=== PATIENT | female | born 1940 | race Caucasian/White ===

== ENCOUNTER → 2017-05-07 | Outpatient (CLI) | payer OTHER, BC ==
[~2017-05-07] MED LIST: ALPR-411 PO; ASACOL 400MG PO; CALC-354 PO; DABI150C PO; ESCI10TA17 PO; ESCI5TAB PO; OMEP20CA59 PO; PRAV20TA PO; PRED-301 PO; PRT40 PO
[2017-05-07 18:06] LABS: BASO % 0.6 %; BASO ABS # 0.04 K/uL (0-0.2); EOS % 0.3 %; HEMATOCRIT 21.2 % (37-47); IG% 0.3 %; LYMPH % 21.2 %; LYMPH ABS # 1.47 K/uL (1.2-3.4); MEAN CELL VOLUME 94.2 fL (80-100); MEAN CORPUSCULAR HEMOGLOBIN 31.6 pg (25-34); MEAN CORPUSCULAR HGB CONC 33.5 g/dl (32-36); MEAN PLATELET VOLUME 9.9 fL (7.4-10.4); MONO % 6.4 %; NEUT % 71.2 %; PLATELET COUNT 249 K/uL (130-400); RED BLOOD COUNT 2.25 M/uL (4.2-5.4); WHITE BLOOD COUNT 6.92 K/uL (4.8-10.8)
[2017-05-07 18:32] LABS: COMPLETE YES; POLYCHROMASIA 1+
[2017-05-07 18:38] LABS: ALB/GLOB RATIO 1.1 (0.9-2); ALKALINE PHOSPHATASE 45 U/L (45-117); ALT/SGPT 12 U/L (12-78); AST/SGOT 10 U/L (15-37); BLOOD UREA NITROGEN 16 mg/dl (7-18); BUN/CREATININE RATIO 18.6 (10-20); CALCIUM 8.2 mg/dl (8.5-10.1); CARBON DIOXIDE 28 mmol/L (21-32); CHLORIDE 103 mmol/L (98-107); CREATININE 0.87 mg/dl (0.60-1.20); GLUCOSE 91 mg/dl (70-99); POTASSIUM 4.2 mmol/L (3.5-5.1); SODIUM 137 mmol/L (136-145)
[2017-05-07 18:43] LABS: CHOLESTEROL 113 mg/dl (0-200); CHOLESTEROL/HDL RATIO 2.3; HDL CHOLESTEROL 50 mg/dl; LDL CHOLESTEROL CALCULATED 52 mg/dl; TRIGLYCERIDES 57 mg/dl (0-150); VERY LOW DENSITY LIPOPROT CALC 11 mg/dl
[2017-05-08 06:22] LABS: ESTIMATED AVERAGE GLUCOSE 105 mg/dl; HA1C FLAG Normal (Normal)
== END | disposition home or self-care (01) ==
LOC: C.LABMFLN 13:00
PROVIDERS: ATTEND Physician Assistant
DX: R07.9 Chest pain, unspecified (principal)

== ENCOUNTER 2017-05-08 11:46 | Inpatient (IN) | payer OTHER, BC ==
[~2017-05-08] VITALS: Ht 162.6 cm; Wt 48.5 kg
[2017-05-08] VITALS (14 sets, daily range): BP systolic 101–123; BP diastolic 57–73; PULSE 60–79; TEMP 36.5–36.8; O2SAT 91–100; Ht 162.6 cm; Wt 48.5 kg
[~2017-05-08 11:46] MED LIST changes: -DABI150C PO; -ESCI10TA17 PO; -PRAV20TA PO; -PRED-301 PO; -PRT40 PO
[2017-05-08] MEDS ORDERED: ALPR-411 PO (12:36)
[2017-05-08] MEDS ORDERED: DABI150C PO (12:36)
[2017-05-08] MEDS ORDERED: OMEP20CA59 PO (12:36)
[2017-05-08] MEDS ORDERED: PRED-301 PO (12:36)
[2017-05-08] MEDS ORDERED: ESCI10TA17 PO (12:36)
[2017-05-08] MEDS ORDERED: PRAV20TA PO (12:36)
[2017-05-08] MEDS ORDERED: SODIUM CHLORIDE 0.9% 1000ML 1,000 ML IV STA (12:37)
[2017-05-08] MEDS ORDERED: PANTOprazole INJ 80 MG in DEXTROSE 5% 100ML IV ONE (13:00)
--- NOTE | 2017-05-08 13:01 | DIAGNOSTIC IMAGING REPORT ---
CHEST ONE VIEW PORTABLE CLINICAL HISTORY: EVALUATE GI BLEED dyspnea COMPARISON STUDY: 10/18/2013 FINDINGS: Stable emphysematous change. Mild pulmonary hyperaeration. No evidence for cardiac enlargement. No focal infiltrate. IMPRESSION: Emphysematous change. No acute process. Electronically signed by: Uli Sanches M.D. 05/08/2017 1:00 PM Dictated Date/Time: 05/08/2017 12:59 PM
[2017-05-08] MEDS ORDERED: PANTOprazole INJ 40 MG in DEXTROSE 5% 100ML IV SCH (13:15)
[2017-05-08 13:27] LABS: INR 1.2 (0.9-1.1); PARTIAL THROMBOPLASTIN RATIO 1.3; PROTHROMBIN TIME (PATIENT) 12.4 SECONDS (9.0-12.0)
[2017-05-08 13:32] LABS: HEMATOCRIT 20.8 % (37-47); MEAN CELL VOLUME 94.5 fL (80-100); MEAN CORPUSCULAR HEMOGLOBIN 30.9 pg (25-34); MEAN CORPUSCULAR HGB CONC 32.7 g/dl (32-36); MEAN PLATELET VOLUME 9.3 fL (7.4-10.4); PLATELET COUNT 266 K/uL (130-400); WHITE BLOOD COUNT 9.82 K/uL (4.8-10.8)
[2017-05-08 13:43] LABS: ALT/SGPT 12 U/L (12-78); AST/SGOT 12 U/L (15-37); BLOOD UREA NITROGEN 14 mg/dl (7-18); BUN/CREATININE RATIO 18.4 (10-20); CALCIUM 8.4 mg/dl (8.5-10.1); CARBON DIOXIDE 28 mmol/L (21-32); CHLORIDE 105 mmol/L (98-107); CREATININE 0.76 mg/dl (0.60-1.20); GLUCOSE 91 mg/dl (70-99); POTASSIUM 3.9 mmol/L (3.5-5.1); SODIUM 140 mmol/L (136-145)
[2017-05-08 13:46] LABS: BASO % 0.4 %; BASO ABS # 0.04 K/uL (0-0.2); COMPLETE YES; EOS % 0.3 %; IG% 0.3 %; LYMPH % 18.2 %; LYMPH ABS # 1.79 K/uL (1.2-3.4); MONO % 5.4 %; NEUT % 75.4 %; POLYCHROMASIA 1+
[2017-05-08 13:48] LABS: ALKALINE PHOSPHATASE 45 U/L (45-117)
[2017-05-08] MEDS ORDERED: ACETAMINOPHEN 325 MG TAB PO PRN (14:45)
--- NOTE | 2017-05-08 14:49 | EMERGENCY ROOM VISIT NOTE ---
History Report prepared by Cee: Sena Chinchilla Under the Supervision of: Dr. Nixon Arrington M.D. First contact with patient: 12:33 Chief Complaint: DIZZY Stated Complaint: DIZZINESS,FATIGUE-EVALUATION FROM DR HUNG STOVALL Nursing Triage Summary: sent in for transfusion per PMD hung stovall pt has black stool no complaints of pain History of Present Illness The patient is a 76 year old female who presents to the Emergency Room with complaints of persistent black stools starting 7 days ago. She also complains of dizziness, lightheadedness, and shortness of breath. She currently reports nausea. She had blood work yesterday which showed a low hemoglobin level at 7.1. She was referred to the Emergency Room today by her PCP for a blood transfusion. She denies any history of bleeding, and myocardial infarction. She has a cardiac exercise physiologist in place. She was placed on Pradaxa in August for a stroke. She also takes a medication to prevent stomach ulcers. She denies chest pain, abdominal pain, or any other complaints. Source of History: patient Onset: 7 days ago Position: other (global) Quality: other (black stools) Timing: other (persistent) Associated Symptoms: + SOB, + nausea, No chest pain, No abdominal pain Review of Systems See HPI for pertinent positives & negatives. A total of 10 systems reviewed and were otherwise negative. Past Medical & Surgical Medical Problems: (1) Anemia (2) Arthralgia (3) Arthralgia (4) Colitis (5) Diverticulitis (6) Diverticulosis (7) GI bleed (8) Kidney stone Surgical Problems: (1) Hx of cholecystectomy (2) S/P cholecystectomy Family History Cancer Kidney disease Kidney stones Social History Smoking Status: Former Smoker Marital Status: Housing Status: lives with family Occupation Status: retired Current/Historical Medications Scheduled Alprazolam (Xanax), 0.5 MG PO TID Dabigatran Etexilate Mesylate (Pradaxa), 150 MG PO BID Escitalopram (Lexapro), 10 MG PO DAILY Omeprazole (Prilosec), 20 MG PO DAILY Pravastatin (Pravachol ), 20 MG PO QPM Prednisone (Prednisone), 5 MG PO UD Allergies Coded Allergies: Amoxicillin (Verified Allergy, Unknown, ., 08/31/15) Clavulanic Acid (Verified Allergy, Unknown, ., 08/31/15) Physical Exam Vital Signs Date Time Temp Pulse Resp B/P (MAP) Pulse Ox O2 Delivery O2 Flow Rate FiO2 05/08/17 14:41 65 17 96 05/08/17 14:36 66 13 97 05/08/17 14:31 70 16 97 05/08/17 14:26 68 15 96 05/08/17 14:21 68 16 98 05/08/17 14:16 66 19 97 05/08/17 14:00 99/63 05/08/17 13:46 68 21 99 05/08/17 13:16 66 17 05/08/17 13:07 66 05/08/17 11:55 36.7 82 20 95/59 98 Physical Exam GENERAL: Patient is in no acute distress. HEENT: No acute trauma, normocephalic atraumatic, mucous membranes moist, no nasal congestion, no scleral icterus. NECK: No stridor, no adenopathy, no meningismus, trachea is midline. LUNGS: Clear to auscultation bilaterally, no wheeze, no rhonchi, breath sounds equal. HEART: Without murmurs gallops or rubs, regular rate and rhythm. ABDOMEN: Soft, nontender, bowel sounds positive, no hernias, no peritonitis. RECTAL: Dark stool, heme positive. EXTREMITIES: No cyanosis or edema, full range of motion of all the joints without pain or difficulty, no signs for acute trauma. NEUROLOGIC: Oriented x 3, no acute motor or sensory deficits, no focal weakness. SKIN: No rash, no jaundice, no diaphoresis. Medical Decision & Procedures ER Provider Diagnostic Interpretation: X-ray results as stated below per interpretation by me and the radiologist: CHEST ONE VIEW PORTABLE CLINICAL HISTORY: EVALUATE GI BLEED dyspnea COMPARISON STUDY: 10/18/2013 FINDINGS: Stable emphysematous change. Mild pulmonary hyperaeration. No evidence for cardiac enlargement. No focal infiltrate. IMPRESSION: Emphysematous change. No acute process. Electronically signed by: Uli Sanches M.D. 05/08/2017 1:00 PM Dictated Date/Time: 05/08/2017 12:59 PM Laboratory Results 05/08/17 12:56 Red Blood Count 2.20, Mean Corpuscular Volume 94.5, Mean Corpuscular Hemoglobin 30.9, Mean Corpuscular Hemoglobin Concent 32.7, Mean Platelet Volume 9.3, Neutrophils (%) (Auto) 75.4, Lymphocytes (%) (Auto) 18.2, Monocytes (%) (Auto) 5.4, Eosinophils (%) (Auto) 0.3, Basophils (%) (Auto) 0.4, Neutrophils # (Auto) 7.40, Lymphocytes # (Auto) 1.79, Monocytes # (Auto) 0.53, Eosinophils # (Auto) 0.03, Basophils # (Auto) 0.04 05/08/17 12:56 Test 05/08/17 12:56 White Blood Count 9.82 K/uL (4.8-10.8) Red Blood Count 2.20 M/uL (4.2-5.4) Hemoglobin 6.8 g/dL (12.0-16.0) Hematocrit 20.8 % (37-47) Mean Corpuscular Volume 94.5 fL (80-100) Mean Corpuscular Hemoglobin 30.9 pg (25-34) Mean Corpuscular Hemoglobin Concent 32.7 g/dl (32-36) Platelet Count 266 K/uL (130-400) Mean Platelet Volume 9.3 fL (7.4-10.4) Neutrophils (%) (Auto) 75.4 % Lymphocytes (%) (Auto) 18.2 % Monocytes (%) (Auto) 5.4 % Eosinophils (%) (Auto) 0.3 % Basophils (%) (Auto) 0.4 % Neutrophils # (Auto) 7.40 K/uL (1.4-6.5) Lymphocytes # (Auto) 1.79 K/uL (1.2-3.4) Monocytes # (Auto) 0.53 K/uL (0.11-0.59) Eosinophils # (Auto) 0.03 K/uL (0-0.5) Basophils # (Auto) 0.04 K/uL (0-0.2) RDW Standard Deviation 53.3 fL (36.4-46.3) RDW Coefficient of Variation 15.8 % (11.5-14.5) Immature Granulocyte % (Auto) 0.3 % Immature Granulocyte # (Auto) 0.03 K/uL (0.00-0.02) Polychromasia 1+ Prothrombin Time 12.4 SECONDS (9.0-12.0) Prothromb Time International Ratio 1.2 (0.9-1.1) Activated Partial Thromboplast Time 34.5 SECONDS (21.0-31.0) Partial Thromboplastin Ratio 1.3 Anion Gap 7.0 mmol/L (3-11) Est Creatinine Clear Calc Drug Dose 49.4 ml/min Estimated GFR () 89.6 Estimated GFR (Non- 77.3 BUN/Creatinine Ratio 18.4 (10-20) Calcium Level 8.4 mg/dl (8.5-10.1) Magnesium Level 2.0 mg/dl (1.8-2.4) Total Bilirubin 0.4 mg/dl (0.2-1) Direct Bilirubin 0.1 mg/dl (0-0.2) Aspartate Amino Transf (AST/SGOT) 12 U/L (15-37) Alanine Aminotransferase (ALT/SGPT) 12 U/L (12-78) Alkaline Phosphatase 45 U/L (45-117) Troponin I < 0.015 ng/ml (0-0.045) Total Protein 6.1 gm/dl (6.4-8.2) Albumin 3.1 gm/dl (3.4-5.0) Lipase 150 U/L (73-393) Laboratory results reviewed by me. Medications Administered Medications (Trade) Dose Ordered Sig/Akua Route Start Time Stop Time Status Last Admin Dose Admin Sodium Chloride 1,000 ml @ 999 mls/hr Q1H1M STAT IV 05/08/17 12:37 05/08/17 13:37 DC 05/08/17 12:37 999 MLS/HR Pantoprazole Sodium (Protonix IV Bolus/Drip) 1 ea NOW STAT IV 05/08/17 12:37 05/08/17 12:41 DC 05/08/17 12:37 1 EA Pantoprazole Sodium 80 mg/ Dextrose 120 ml @ 480 mls/hr TODAY@1300 ONCE IV 05/08/17 13:00 05/08/17 13:14 DC 05/08/17 13:00 480 MLS/HR Pantoprazole Sodium 40 mg/ Dextrose 100 ml @ 20 mls/hr Q5H IV 05/08/17 13:15 05/08/17 18:14 05/08/17 13:15 20 MLS/HR ECG Indication: other (Dizziness; black stools) Rate (beats per minute): 67 Rhythm: sinus rhythm Findings: no acute ischemic change, no ectopy, other (short NE) ED Course 1233: The patient was evaluated in room A10. A complete history and physical exam was performed. 1237: Pantoprazole Sodium 1 ea IV, Sodium Chloride 1000 ml @ 999 mls/hr IV 1240: Consent for blood was obtained. 1300: Pantoprazole Sodium 80 mg/Dextrose 120 ml @ 480 mls/hr IV 1315: Pantoprazole Sodium 40 mg/Dextrose 100 ml @ 20 mls/hr IV 1340: I discussed the patient's case with Dr. Castorena, from [facility]. 1347: Upon reexamination the patient is resting comfortably. I discussed results and treatment plan with the patient. She verbalizes agreement and understanding. The patient will be evaluated for further management. Medical Decision Medication Reconciliation: I attest that I have personally reviewed the patient' s current medication list. Blood Pressure Screening: Patient was found to have normal blood pressure on screening and does not require follow-up. Differential diagnosis includes but is not limited to Upper or lower GI bleed, gastritis, anemia, coagulopathy, dehydration, electrolyte imbalance. There is no leukocytosis. The patient is quite anemic with a hemoglobin of 6.8. Stool testing is heme positive. There is no significant electrolyte abnormality, kidney failure or hepatitis. EKG shows a sinus rhythm, no ischemia. Cardiac enzyme testing times one is not consistent with acute cardiac injury. Chest x-ray shows some possible COPD, no pneumonia or free air. There is a very subtle coagulopathy, likely consistent with her Pradaxa use. The patient presents with weakness, shortness of breath, black stools and a low hemoglobin. She likely has an upper GI bleed. She requires admission/ observation. She was aggressively managed. She was given IV saline, IV Protonix and placed on a Protonix drip. She was ordered for 1 unit of packed red blood cells to be transfused. She did consent to transfusion. I spoke to the patient and case management. The on-call hospitalist was consulted. Consults Time Called: 1245 Consulting Physician: Dr. Castorena, from [facility] Returned Call: 1340 I discussed the patient's case with Dr. Castorena, from [facility]. Impression Primary Impression: GI bleeding Additional Impressions: Anemia Hypotension Critical Care I have personally spent greater than 30 minutes of critical care time in the direct management of this patient. This includes bedside care, interpretation of diagnostic studies and testing, discussion with consultants, the patient, and family members, and other required patient management activities. This 30 minutes is in excess of all separately billable procedures. Scribe Attestation The scribe's documentation has been prepared under my direction and personally reviewed by me in its entirety. I confirm that the note above accurately reflects all work, treatment, procedures, and medical decision making performed by me. Departure Information Dispostion Being Evaluated By Hospitalist Referrals Hung Stovall PA-C (PCP) Patient Instructions [facility] Problem Qualifiers
--- NOTE | 2017-05-08 15:47 | History and Physical ---
History & Physical Date & Time of Service: May 08, 2017 at 15:14 Chief Complaint: Dizziness,Fatigue-Evaluation From Dr Sherman Velarde Primary Care Physician: Sherman Velarde, JERE History of Present Illness Source: patient 76 y/o F Hx PUD, unspecified rheumatic condition, CVA due to presumed AF - has an implanted monitor presently and is taking Xarelto. Pt has had black tarry stools for over one week and recently became progressively light-headed. She denies nausea, vomiting, diarrhea, abdominal pain or SOB. She presented to the hospital for evaluation and has a Hb of 6.8 on initial labs. Past Medical/Surgical History 1) GERD 2) CVA - due to presumed AF - has an implanted event monitor 3) Anemia 4) Unspecified rheumatic condition - the pt states that she has an elevated ESR and muscle weakness and stiffness. She is maintained on a low dose of Prednisone and does not have a specific diagnosis 5) S/P cholecystectomy Family History Cancer Kidney disease Kidney stones Social History Smoking Status: Former Smoker Marital Status: Occupational Status: retired Multi-Drug Resistant Organisms History of MDRO: No Allergies Coded Allergies: Amoxicillin (Verified Allergy, Unknown, ., 08/31/15) Clavulanic Acid (Verified Allergy, Unknown, ., 08/31/15) Home Medications Scheduled Alprazolam (Xanax), 0.5 MG PO TID Dabigatran Etexilate Mesylate (Pradaxa), 150 MG PO BID Escitalopram (Lexapro), 10 MG PO DAILY Omeprazole (Prilosec), 20 MG PO DAILY Pravastatin (Pravachol ), 20 MG PO QPM Prednisone (Prednisone), 5 MG PO UD Review of Systems Constitutional: + weakness, No fever, No chills, No sweats Eyes: No worsening of vision ENT: No hearing loss, No unusual epistaxis, No nasal symptoms Respiratory: No cough, No sputum, No wheezing Cardiovascular: No chest pain, No orthopnea, No PND Abdomen: + GI bleeding, No pain, No nausea, No vomiting Musculoskeletal: No joint pain Genitourinary - Female: No dysuria Neurologic: No memory loss, No paralysis, No weakness Psychiatric: No depression symptoms Endocrine: No fatigue Hematologic / Lymphatic: No abnormal bleeding/bruising Integumentary: No rash, No itch Allergic / Immunologic: No environmental allergies Physical Exam Vital Signs Date Time Temp Pulse Resp B/P (MAP) Pulse Ox O2 Delivery O2 Flow Rate FiO2 05/08/17 14:16 66 19 97 05/08/17 14:00 99/63 05/08/17 13:46 68 21 99 05/08/17 13:16 66 17 05/08/17 13:07 66 05/08/17 11:55 36.7 82 20 95/59 98 General Appearance: WD/WN, no apparent distress Head: normocephalic Eyes: normal inspection ENT: normal ENT inspection, pharynx normal Neck: supple, no JVD Respiratory/Chest: chest non-tender, lungs clear, normal breath sounds Cardiovascular: regular rate, rhythm, no edema, no gallop Abdomen/GI: normal bowel sounds, non tender, soft Back: normal inspection, no CVA tenderness, no muscle spasm, normal range of motion Extremities/Musculoskelatal: normal inspection, no calf tenderness, normal capillary refill, no pedal edema Neurologic/Psych: atm servicer II-XII nml as tested, no motor/sensory deficits, alert Skin: normal color, warm/dry, no rash Diagnostics Laboratory Results Results Past 24 Hours Test 05/08/17 12:56 Range/Units White Blood Count 9.82 4.8-10.8 K/uL Red Blood Count 2.20 4.2-5.4 M/uL Hemoglobin 6.8 12.0-16.0 g/dL Hematocrit 20.8 37-47 % Mean Corpuscular Volume 94.5 80-100 fL Mean Corpuscular Hemoglobin 30.9 25-34 pg Mean Corpuscular Hemoglobin Concent 32.7 32-36 g/dl Platelet Count 266 130-400 K/uL Mean Platelet Volume 9.3 7.4-10.4 fL Neutrophils (%) (Auto) 75.4 % Lymphocytes (%) (Auto) 18.2 % Monocytes (%) (Auto) 5.4 % Eosinophils (%) (Auto) 0.3 % Basophils (%) (Auto) 0.4 % Neutrophils # (Auto) 7.40 1.4-6.5 K/uL Lymphocytes # (Auto) 1.79 1.2-3.4 K/uL Monocytes # (Auto) 0.53 0.11-0.59 K/uL Eosinophils # (Auto) 0.03 0-0.5 K/uL Basophils # (Auto) 0.04 0-0.2 K/uL RDW Standard Deviation 53.3 36.4-46.3 fL RDW Coefficient of Variation 15.8 11.5-14.5 % Immature Granulocyte % (Auto) 0.3 % Immature Granulocyte # (Auto) 0.03 0.00-0.02 K/uL Polychromasia 1+ Prothrombin Time 12.4 9.0-12.0 SECONDS Prothromb Time International Ratio 1.2 0.9-1.1 Activated Partial Thromboplast Time 34.5 21.0-31.0 SECONDS Partial Thromboplastin Ratio 1.3 Sodium Level 140 136-145 mmol/L Potassium Level 3.9 3.5-5.1 mmol/L Chloride Level 105 98-107 mmol/L Carbon Dioxide Level 28 21-32 mmol/L Anion Gap 7.0 3-11 mmol/L Blood Urea Nitrogen 14 7-18 mg/dl Creatinine 0.76 0.60-1.20 mg/dl Est Creatinine Clear Calc Drug Dose 49.4 ml/min Estimated GFR () 89.6 Estimated GFR (Non- 77.3 BUN/Creatinine Ratio 18.4 10-20 Random Glucose 91 70-99 mg/dl Calcium Level 8.4 8.5-10.1 mg/dl Magnesium Level 2.0 1.8-2.4 mg/dl Total Bilirubin 0.4 0.2-1 mg/dl Direct Bilirubin 0.1 0-0.2 mg/dl Aspartate Amino Transf (AST/SGOT) 12 15-37 U/L Alanine Aminotransferase (ALT/SGPT) 12 12-78 U/L Alkaline Phosphatase 45 45-117 U/L Troponin I < 0.015 0-0.045 ng/ml Total Protein 6.1 6.4-8.2 gm/dl Albumin 3.1 3.4-5.0 gm/dl Lipase 150 73-393 U/L EKG NSR Impression Assessment and Plan 76 y/o F Hx PUD, unspecified rheumatic condition, CVA due to presumed AF - has an implanted monitor presently and is taking Xarelto. Pt has had black tarry stools for over one week and recently became progressively light-headed. She denies nausea, vomiting, diarrhea, abdominal pain or SOB. She presented to the hospital for evaluation and has a Hb of 6.8 on initial labs. 1) GI bleed - placed on Protonix drip, to be transfused 2 units due to symptoms and Hb < 7. Will monitor on telemetry and keep NPO pending GI eval - likely to require endoscopy. Pradaxa held. 2) AF - presumed - pt has an implanted monitor and will need to resume Xarelto or other due to her history of a CVA 3) Rheumatic condition - will maintain on prednisone - has not been able to DC and will need to continue to avoid insufficiency - consider stress dosing with hypotension. Full code - SCDs Total time for this admit including review of labs, meds, records, EKG - discussion with pt, daughter, ER attending - 35 min Level of Care Telemetry Resuscitation Status FULL RESUSCITATION VTE Prophylaxis VTE Risk Assessment Done? Y/N: Yes Risk Level: Moderate Given or contraindicated: SCD's
[2017-05-08] MEDS: PANTOprazole INJ 40 MG in DEXTROSE 5% 100ML IV SCH ×2 (18:08→23:20)
[2017-05-08] MEDS: D5NSS + 20MEQ KCL 1,000 ML IV SCH (20:24)
[2017-05-08] MEDS: PRAVASTATIN SOD 20 MG TAB PO SCH (20:29)
[2017-05-08] MEDS: ALPRAZOLAM 0.5 MG TAB PO SCH (21:17)
[2017-05-09] VITALS (7 sets, daily range): BP systolic 110–148; BP diastolic 70–79; PULSE 59–77; TEMP 36.4–36.7; O2SAT 96–98
[2017-05-09] MEDS: ONDANSETRON INJ 2 MG/ML 2 ML VIAL IV PRN ×2 (02:52→23:37)
[2017-05-09] MEDS: PANTOprazole INJ 40 MG in DEXTROSE 5% 100ML IV SCH ×3 (04:05→14:22)
[2017-05-09] MEDS: D5NSS + 20MEQ KCL 1,000 ML IV SCH (05:50)
[2017-05-09] MEDS: ESCITALOPRAM OXALATE 10 MG TAB PO SCH (08:00)
[2017-05-09] MEDS: ALPRAZOLAM 0.5 MG TAB PO SCH ×3 (08:01→20:49)
[2017-05-09] MEDS ORDERED: PRED-301 PO (08:07)
--- NOTE | 2017-05-09 08:11 | Clinical Documentation Query ---
DAREK Green : CLINICAL DOCUMENTATION QUERY Patient is a 76 year old female admitted for GI bleed in the setting of Pradaxa use for presumed CVA protection in the setting of nonvalvular atrial fibrillation. As appropriate, consider documentation as suggested below as this impacts severity of illness, risk of mortality, and DRG assignment. Thank you. In your clinical opinion is this patient being managed for: ( x ) Coagulation defect/hemorrhagic disorder with resultant GI bleed in the setting of Pradaxa use ( ) Other explanation of clinical findings (Please Explain) ( ) Unable to determine (Please Define) ( ) Need to Discuss ( ) Not Agree The medical record reflects the following clinical findings, treatment, and risk factors. Clinical Indicators: As above Treatment: PPI infusion, transfusion of PRBC's, telemetry, NPO, GI consultation Risk Factors: Direct thrombin inhibitor use in the setting of AF and CVA prophylaxis. CC: Bleeding d/t Therapeutic [facility]tico[facility] [id number], p14 Question: Should bleeding due to therapeutic anticoagulant be coded as a hemorrhagic disorder (category D68)? Answer: For the most part, "hemorrhagic disorder" or "coagulation defects" must be specifically diagnosed and documented by the provider, in order to assign codes at category D68, Other coagulation defects. However, for bleeding such as hemoptysis, hematuria, hematemesis, hematochezia, etc., that is associated with a drug, as part of anticoagulation therapy, assign code D68.32, Hemorrhagic disorder due to extrinsic circulating anticoagulants. This is supported by the inclusion term at D68.32 of "Drug-induced hemorrhagic disorder." The sequencing of code D68.32 and other codes describing the type or site of bleeding, (e.g., hemoptysis or hematuria), would be dependent on the circumstances of the admission. Copyright (2017), [facility] ("[employer]HA"), [place], [place]. Reproduced with permission. No portion of this publication may be copied without the express, written consent of AHA. Your Clinical Example A 75 yo male presents to the ED from the physician's office for direct admit. He is complaining of blood in his urine. He has a history of recurrent Afib and takes Coumadin on daily basis. Interview of the patient reveals that he has taken his medication as directed. His admitting diagnosis is "Coumadin induced Coagulopathy with hematuria." Please clarify and document your clinical opinion in the progress notes and discharge summary. Terms such as "probable", "suspected", "likely", "questionable", "possible", or "still to be ruled out" are acceptable. IF IN AGREEMENT, YOU MUST DOCUMENT ABOVE DIAGNOSTIC STATEMENT IN DAILY PROGRESS NOTES AND DISCHARGE SUMMARY. This document is not part of the patient's record. Thank You, Antonio Kaufman, RN [phone]
--- NOTE | 2017-05-09 08:12 | Clinical Documentation Query ---
KEERTHI ACOSTA : CLINICAL DOCUMENTATION QUERY Patient is a 76 year old female admitted for GI bleed in the setting of Pradaxa use for presumed CVA protection in the setting of nonvalvular atrial fibrillation. As appropriate, consider documentation as suggested below as this impacts severity of illness, risk of mortality, and DRG assignment. Thank you. In your clinical opinion is this patient being managed for: ( ) Coagulation defect/hemorrhagic disorder with resultant GI bleed in the setting of Pradaxa use ( ) Other explanation of clinical findings (Please Explain) ( ) Unable to determine (Please Define) ( ) Need to Discuss ( x ) Not Agree The medical record reflects the following clinical findings, treatment, and risk factors. Clinical Indicators: As above Treatment: PPI infusion, transfusion of PRBC's, telemetry, NPO, GI consultation Risk Factors: Direct thrombin inhibitor use in the setting of AF and CVA prophylaxis. CC: Bleeding d/t Therapeutic Anticoagulation [facility]oding [facility] [id number], p14 Question: Should bleeding due to therapeutic anticoagulant be coded as a hemorrhagic disorder (category D68)? Answer: For the most part, "hemorrhagic disorder" or "coagulation defects" must be specifically diagnosed and documented by the provider, in order to assign codes at category D68, Other coagulation defects. However, for bleeding such as hemoptysis, hematuria, hematemesis, hematochezia, etc., that is associated with a drug, as part of anticoagulation therapy, assign code D68.32, Hemorrhagic disorder due to extrinsic circulating anticoagulants. This is supported by the inclusion term at D68.32 of "Drug-induced hemorrhagic disorder." The sequencing of code D68.32 and other codes describing the type or site of bleeding, (e.g., hemoptysis or hematuria), would be dependent on the circumstances of the admission. Copyright (2017), [facility] ("[facility]HA"), [place], [place]. Reproduced with permission. No portion of this publication may be copied without the express, written consent of AHA. Your Clinical Example A 75 yo male presents to the ED from the physician's office for direct admit. He is complaining of blood in his urine. He has a history of recurrent Afib and takes Coumadin on daily basis. Interview of the patient reveals that he has taken his medication as directed. His admitting diagnosis is "Coumadin induced Coagulopathy with hematuria." Please clarify and document your clinical opinion in the progress notes and discharge summary. Terms such as "probable", "suspected", "likely", "questionable", "possible", or "still to be ruled out" are acceptable. IF IN AGREEMENT, YOU MUST DOCUMENT ABOVE DIAGNOSTIC STATEMENT IN DAILY PROGRESS NOTES AND DISCHARGE SUMMARY. This document is not part of the patient's record. Thank You, Antonio Kaufman, RN [phone]
--- NOTE | 2017-05-09 08:33 | Clinical Documentation Query ---
KEERTHI ACOSTA : CLINICAL DOCUMENTATION QUERY Presented with black stools, dizziness and shortness of breath. Admission H&H was 6.8 g/dl and 20.8%. Most recent hemoglobin 8.9 g/dl status post transfusion of 2 units of PRBC's. As appropriate, consider documentation as suggested below. Thank you. In your clinical opinion is this patient being managed for: (x ) Acute blood loss anemia ( ) Other explanation of clinical findings (Please Explain) ( ) Unable to determine (Please Define) ( ) Need to Discuss ( ) Not Agree The medical record reflects the following clinical findings, treatment, and risk factors. Clinical Indicators: As above Treatment: PPI infusion, transfusion of PRBC's, GI consultation, serial hematology Risk Factors: Pradaxa, prednisone Please clarify and document your clinical opinion in the progress notes and discharge summary. Terms such as "probable", "suspected", "likely", "questionable", "possible", or "still to be ruled out" are acceptable. IF IN AGREEMENT, YOU MUST DOCUMENT ABOVE DIAGNOSTIC STATEMENT IN DAILY PROGRESS NOTES AND DISCHARGE SUMMARY. This document is not part of the patient's record. Thank You, Antonio Kaufman, RN [phone]
--- NOTE | 2017-05-09 10:24 | Gastrointestinal Consultation ---
Gastrointestinal Consultation Date of Consultation: May 09, 2017 Attending Physician: Dr. Nelson Consulting Physician: Susan Chau PA-C Reason for Consultation: Anemia, GI bleeding History of Present Illness Patient is a 76 year old female with a past medical history of Ulcerative Colitis, Afib, CVA, GERD with peptic ulcers, & an unspecified rheumatic condition who presented to the hospital after 1 week of black, tarry stools, weakness/fatigue, & dizziness. The patient's hemoglobin upon admission was 6.8. She reports that she has not been experiencing any abdominal pain, cramping, constipation, diarrhea, heartburn, or acid reflux. She reports that she has a history of stomach ulcers. She takes Omeprazole 40 mg daily at home per her reports. She denies NSAID use. She does take Pradaxa daily for her Atrial Fibrillation. This has been on hold since her admission to the hospital. She had a CVA in August 2016 due to Atrial Fibrillation, however she now has an implanted Watchman device managed by cardiology at [facility]. Upon review of outpatient records, it appears she follows with [facility] for Ulcerative Colitis. Her last colonoscopy was in 2010. At that time, she was noted to have active disease diffusely throughout the entire colon. Per the notes, she was advised to take Asacol 1600 mg BID, however she reported that she was using it on a prn basis. Compliance was stressed to her and she was asked to have a repeat study in 2011. The patient did not continue to take her medication and did not have a follow-up colonoscopy. She denies family history of GI issues. Her hemoglobin has improved since transfusion of PRBCs to 8.9. She offers no further complaints. Past Medical/Surgical History Medical Problems: (1) GI bleeding Status: Acute (2) Hypotension Status: Acute Past Medical History: Ulcerative Colitis, Atrial Fibrillation, CVA, GERD, Peptic ulcers, Rheumatologic condition (unspecified) Past Surgical History: cholecystectomy Family History Cancer Kidney disease Kidney stones Social History Smoking Status: Former Smoker Marital Status: Housing Status: lives with family Occupation Status: retired Allergies Coded Allergies: Amoxicillin (Verified Allergy, Unknown, ., 08/31/15) Clavulanic Acid (Verified Allergy, Unknown, ., 08/31/15) Current Medications Home Meds and Scripts Medications Dose Route/Sig Max Daily Dose Days Date Category Prednisone 5 Mg Tab 5 Mg PO DAILY 05/09/17 Reported Lexapro (Escitalopram Oxalate) 10 Mg Tab 10 Mg PO DAILY 05/08/17 Reported Prilosec (Omeprazole) 20 Mg Capcr 20 Mg PO DAILY 05/08/17 Reported Xanax (Alprazolam) 0.5 Mg Tab 0.5 Mg PO TID 05/08/17 Reported Pravachol (Pravastatin Sodium) 20 Mg Tab 20 Mg PO QPM 05/08/17 Reported Pradaxa (Dabigatran Etexilate Mesylate) 150 Mg Cap 150 Mg PO BID 05/08/17 Reported Review of Systems Constitutional: + fatigue, No fever, No chills Eyes: No problem reported Respiratory: No cough, No shortness of breath, No dyspnea on exertion Cardiac: No chest pain Abdomen: + GI bleeding, No pain, No nausea, No vomiting, No diarrhea, No constipation Musculoskeletal: No joint pain Psych: No problem reported Endo: + fatigue Skin: No problem reported Physical Exam Date Time Temp Pulse Resp B/P (MAP) Pulse Ox O2 Delivery O2 Flow Rate FiO2 05/09/17 08:00 Room Air 05/09/17 07:26 36.7 77 18 110/71 (84) 96 Room Air 05/09/17 04:00 Room Air 05/09/17 00:00 Room Air 05/08/17 23:39 36.8 61 18 101/61 (74) 95 Room Air 05/08/17 20:00 Room Air 05/08/17 19:50 36.8 60 18 116/68 97 05/08/17 19:20 36.6 77 19 123/70 96 05/08/17 18:50 36.5 65 18 108/68 97 05/08/17 18:20 36.8 61 18 113/67 98 05/08/17 18:05 36.8 61 18 102/64 98 05/08/17 17:49 36.7 79 18 105/66 91 05/08/17 17:20 36.7 79 18 105/66 91 05/08/17 16:52 36.8 66 18 113/70 98 Room Air 05/08/17 16:44 36.8 66 18 113/70 98 05/08/17 16:15 36.7 66 18 117/73 98 05/08/17 15:53 36.8 62 16 111/57 98 05/08/17 15:46 63 15 111/57 98 05/08/17 15:46 36.8 62 16 111/57 98 05/08/17 15:41 63 18 99 05/08/17 15:36 62 18 98 05/08/17 15:31 64 18 109/61 99 05/08/17 15:31 36.6 65 15 109/61 100 05/08/17 15:26 65 24 100 05/08/17 15:21 65 27 99 05/08/17 15:16 64 19 119/64 99 05/08/17 15:14 108/61 05/08/17 15:13 36.8 65 20 111/68 99 05/08/17 15:12 111/68 05/08/17 15:11 62 20 99 05/08/17 15:06 68 22 98 05/08/17 15:04 103/64 05/08/17 15:01 66 20 99/63 98 05/08/17 14:56 63 21 100 05/08/17 14:51 68 17 92 05/08/17 14:49 118/67 05/08/17 14:41 65 17 96 05/08/17 14:36 66 13 97 05/08/17 14:31 70 16 97 05/08/17 14:26 68 15 96 05/08/17 14:21 68 16 98 05/08/17 14:16 66 19 97 05/08/17 14:00 99/63 05/08/17 13:46 68 21 99 05/08/17 13:16 66 17 05/08/17 13:07 66 05/08/17 11:55 36.7 82 20 95/59 98 General Appearance: WD/WN, no apparent distress Eyes: normal inspection, PERRL ENT: hearing grossly normal Respiratory/Chest: lungs clear Cardiovascular: regular rate, rhythm Abdomen: non tender, soft Extremities: non-tender Neurologic/Psych: alert, oriented x 3 Skin: normal color Laboratory Results Last 24 Hours Test 05/08/17 12:56 05/08/17 20:59 05/09/17 03:02 White Blood Count 9.82 K/uL Red Blood Count 2.20 M/uL Hemoglobin 6.8 g/dL 9.0 g/dL 8.9 g/dL Hematocrit 20.8 % Mean Corpuscular Volume 94.5 fL Mean Corpuscular Hemoglobin 30.9 pg Mean Corpuscular Hemoglobin Concent 32.7 g/dl Platelet Count 266 K/uL Mean Platelet Volume 9.3 fL Neutrophils (%) (Auto) 75.4 % Lymphocytes (%) (Auto) 18.2 % Monocytes (%) (Auto) 5.4 % Eosinophils (%) (Auto) 0.3 % Basophils (%) (Auto) 0.4 % Neutrophils # (Auto) 7.40 K/uL Lymphocytes # (Auto) 1.79 K/uL Monocytes # (Auto) 0.53 K/uL Eosinophils # (Auto) 0.03 K/uL Basophils # (Auto) 0.04 K/uL RDW Standard Deviation 53.3 fL RDW Coefficient of Variation 15.8 % Immature Granulocyte % (Auto) 0.3 % Immature Granulocyte # (Auto) 0.03 K/uL Polychromasia 1+ Prothrombin Time 12.4 SECONDS Prothromb Time International Ratio 1.2 Activated Partial Thromboplast Time 34.5 SECONDS Partial Thromboplastin Ratio 1.3 Sodium Level 140 mmol/L Potassium Level 3.9 mmol/L Chloride Level 105 mmol/L Carbon Dioxide Level 28 mmol/L Anion Gap 7.0 mmol/L Blood Urea Nitrogen 14 mg/dl Creatinine 0.76 mg/dl Est Creatinine Clear Calc Drug Dose 49.4 ml/min Estimated GFR () 89.6 Estimated GFR (Non- 77.3 BUN/Creatinine Ratio 18.4 Random Glucose 91 mg/dl Calcium Level 8.4 mg/dl Magnesium Level 2.0 mg/dl Total Bilirubin 0.4 mg/dl Direct Bilirubin 0.1 mg/dl Aspartate Amino Transf (AST/SGOT) 12 U/L Alanine Aminotransferase (ALT/SGPT) 12 U/L Alkaline Phosphatase 45 U/L Troponin I < 0.015 ng/ml Total Protein 6.1 gm/dl Albumin 3.1 gm/dl Lipase 150 U/L Impression Patient is a 76 year old female with a GI history of peptic ulcers & Ulcerative Colitis with symptomatic anemia and melena in the setting of Pradaxa use. This is presently held and patient is NPO. Hemoglobin has improved to 8.9 s/p transfusion. Plan 1) Keep NPO. EGD today for further evaluation of melena & anemia. 2) Continue Protonix infusion at present. Pending results of EGD, plan for eventual transition to po PPI therapy. 3) Pradaxa is presently on hold. 4) Suspect upper GI bleed given clinical picture, however patient will likely require a colonoscopy in the immediate future (likely outpatient) for further evaluation of her untreated Ulcerative Colitis. She has previously received her care at [facility]. 5) Continue to monitor H/H. 6) Further recommendations pending the results of EGD. Thank you for allowing us to participate in the care of this patient. If you should have any further questions or concerns, do not hesitate to contact us at [phone]. [phone] or [phone]. Agree with SALEEM Roberts as above Abd: Soft, NT, ND, +BS EGD now for further evaluation of melena Continue Protonix gtt at this time.
--- NOTE | 2017-05-09 12:13 | Hospitalist Progress Note ---
Hospitalist Progress Note Date of Service May 09, 2017. Subjective Pt evaluation today including: conversation w/ patient, physical exam, chart review, lab review, review of studies, review of inpatient medication list Voiding: no voiding problems, no incontinence Patient states she is feeling well this AM. Currently NPO pending EGD. Ongoing melena x1 week. Last BM was yesterday. Denies h/o GI bleed Admits to a h/o PUD and GERD- on daily Prilosec Has been on Pradaxa since August 2016 due to CVA caused by a.fib- treated in [place] Denies excessive caffeine, smoking history, or NSAID use Denies lightheadedness/dizziness. Patient denies any fever, chills, sweats, lightheadedness, dizziness, vision changes, CP, palpitations, edema, SOB, wheezing, cough, abdominal pain, nausea, vomiting, diarrhea, urinary symptoms, numbness/tingling, weakness, muscle/joint pain, anxiety/depression, active bleeding, or new skin discoloration/changes. Medications Current Inpatient Medications Medications (Trade) Dose Ordered Sig/Akua Route Start Time Stop Time Status Last Admin Dose Admin Alprazolam (Xanax Tab) 0.5 mg TID PO 05/08/17 21:00 06/07/17 20:59 05/09/17 08:01 0.5 MG Escitalopram Oxalate (Lexapro Tab) 10 mg DAILY PO 05/09/17 09:00 06/08/17 08:59 05/09/17 08:00 10 MG Pravastatin Sodium (Pravachol Tab) 20 mg QPM PO 05/08/17 21:00 06/07/17 20:59 05/08/17 20:29 20 MG Acetaminophen (Tylenol Tab) 650 mg Q4H PRN PO 05/08/17 14:45 06/07/17 14:44 05/09/17 08:04 650 MG Ondansetron HCl (Zofran Inj) 4 mg Q6H PRN IV 05/08/17 14:45 06/07/17 14:44 05/09/17 02:52 4 MG Potassium Chloride/Dextrose/ Sod Cl 1,000 ml @ 80 mls/hr [id number] IV 05/08/17 17:00 05/09/17 17:59 05/09/17 05:50 80 MLS/HR Pantoprazole Sodium 40 mg/ Dextrose 100 ml @ 20 mls/hr Q5H IV 05/08/17 18:15 06/07/17 18:14 05/09/17 09:16 20 MLS/HR Prednisone (PredniSONE TAB) 5 mg DAILY PO 05/09/17 09:00 06/08/17 08:59 05/09/17 09:17 5 MG Objective Vital Signs Date Time Temp Pulse Resp B/P (MAP) Pulse Ox O2 Delivery O2 Flow Rate FiO2 05/09/17 08:00 Room Air 05/09/17 07:26 36.7 77 18 110/71 (84) 96 Room Air 05/09/17 04:00 Room Air 05/09/17 00:00 Room Air 05/08/17 23:39 36.8 61 18 101/61 (74) 95 Room Air 05/08/17 20:00 Room Air 05/08/17 19:50 36.8 60 18 116/68 97 05/08/17 19:20 36.6 77 19 123/70 96 05/08/17 18:50 36.5 65 18 108/68 97 05/08/17 18:20 36.8 61 18 113/67 98 05/08/17 18:05 36.8 61 18 102/64 98 05/08/17 17:49 36.7 79 18 105/66 91 05/08/17 17:20 36.7 79 18 105/66 91 05/08/17 16:52 36.8 66 18 113/70 98 Room Air 05/08/17 16:44 36.8 66 18 113/70 98 05/08/17 16:15 36.7 66 18 117/73 98 05/08/17 15:53 36.8 62 16 111/57 98 05/08/17 15:46 63 15 111/57 98 05/08/17 15:46 36.8 62 16 111/57 98 05/08/17 15:41 63 18 99 05/08/17 15:36 62 18 98 05/08/17 15:31 64 18 109/61 99 05/08/17 15:31 36.6 65 15 109/61 100 05/08/17 15:26 65 24 100 05/08/17 15:21 65 27 99 05/08/17 15:16 64 19 119/64 99 05/08/17 15:14 108/61 05/08/17 15:13 36.8 65 20 111/68 99 05/08/17 15:12 111/68 05/08/17 15:11 62 20 99 05/08/17 15:06 68 22 98 05/08/17 15:04 103/64 05/08/17 15:01 66 20 99/63 98 05/08/17 14:56 63 21 100 05/08/17 14:51 68 17 92 05/08/17 14:49 118/67 05/08/17 14:41 65 17 96 05/08/17 14:36 66 13 97 05/08/17 14:31 70 16 97 05/08/17 14:26 68 15 96 05/08/17 14:21 68 16 98 05/08/17 14:16 66 19 97 05/08/17 14:00 99/63 05/08/17 13:46 68 21 99 05/08/17 13:16 66 17 05/08/17 13:07 66 Physical Exam General Appearance: no apparent distress Eyes: normal inspection, PERRL ENT: hearing grossly normal Neck: supple Respiratory/Chest: lungs clear, no respiratory distress, no accessory muscle use Cardiovascular: regular rate, rhythm Abdomen: normal bowel sounds, non tender, soft Extremities: no pedal edema, no calf tenderness Neurologic/Psychiatric: alert, normal mood/affect, oriented x 3 Skin: normal color, warm/dry, no rash Laboratory Results Last 24 Hours Test 05/08/17 12:56 05/08/17 20:59 05/09/17 03:02 White Blood Count 9.82 K/uL Red Blood Count 2.20 M/uL Hemoglobin 6.8 g/dL 9.0 g/dL 8.9 g/dL Hematocrit 20.8 % Mean Corpuscular Volume 94.5 fL Mean Corpuscular Hemoglobin 30.9 pg Mean Corpuscular Hemoglobin Concent 32.7 g/dl Platelet Count 266 K/uL Mean Platelet Volume 9.3 fL Neutrophils (%) (Auto) 75.4 % Lymphocytes (%) (Auto) 18.2 % Monocytes (%) (Auto) 5.4 % Eosinophils (%) (Auto) 0.3 % Basophils (%) (Auto) 0.4 % Neutrophils # (Auto) 7.40 K/uL Lymphocytes # (Auto) 1.79 K/uL Monocytes # (Auto) 0.53 K/uL Eosinophils # (Auto) 0.03 K/uL Basophils # (Auto) 0.04 K/uL RDW Standard Deviation 53.3 fL RDW Coefficient of Variation 15.8 % Immature Granulocyte % (Auto) 0.3 % Immature Granulocyte # (Auto) 0.03 K/uL Polychromasia 1+ Prothrombin Time 12.4 SECONDS Prothromb Time International Ratio 1.2 Activated Partial Thromboplast Time 34.5 SECONDS Partial Thromboplastin Ratio 1.3 Sodium Level 140 mmol/L Potassium Level 3.9 mmol/L Chloride Level 105 mmol/L Carbon Dioxide Level 28 mmol/L Anion Gap 7.0 mmol/L Blood Urea Nitrogen 14 mg/dl Creatinine 0.76 mg/dl Est Creatinine Clear Calc Drug Dose 49.4 ml/min Estimated GFR () 89.6 Estimated GFR (Non- 77.3 BUN/Creatinine Ratio 18.4 Random Glucose 91 mg/dl Calcium Level 8.4 mg/dl Magnesium Level 2.0 mg/dl Total Bilirubin 0.4 mg/dl Direct Bilirubin 0.1 mg/dl Aspartate Amino Transf (AST/SGOT) 12 U/L Alanine Aminotransferase (ALT/SGPT) 12 U/L Alkaline Phosphatase 45 U/L Troponin I < 0.015 ng/ml Total Protein 6.1 gm/dl Albumin 3.1 gm/dl Lipase 150 U/L Assessment and Plan 76 y/o F Hx PUD, unspecified rheumatic condition, CVA due to presumed AF - has an implanted monitor presently and is taking Xarelto. Pt has had black tarry stools for over one week and recently became progressively light-headed. She denies nausea, vomiting, diarrhea, abdominal pain or SOB. She presented to the hospital for evaluation and has a Hb of 6.8 on initial labs. GI bleed secondary to Pradaxa/acute blood loss anemia- transfused 2 u PRBCs on : - Admitted to [facility] for cardiac monitoring- no acute events - IVF + KCL @ 80 ml/hr - Pradaxa held - IV Protonix - Consult GI, appreciate recommendations -- EGD on 05/09 -- Outpatient colonoscopy recommended - Follow H&H- STABLE after 2 u transfusion Hypotension at admission- RESOLVED: Treated w/ IVF and 2 u PRBCs transfusion h/o CVA in Aug 2016, presumed to be due to a.fib w/ implanted monitor: - Pradaxa 150 mg BID held- will need to resume anticoagulation once stable - Continue Pravastatin 20 mg HS Rheumatic condition: Continue Prednisone 5 mg daily Anxiety: Xanax 0.5 mg TID and Lexapro TID GERD: Prilosec 20 mg daily held; IV Protonix GI Prophylaxis: Protonix DVT Prophylaxis: Chemical therapy contraindicated secondary to GI bleed and acute blood loss anemia Code Status: LEVEL I, FULL Dispo: Discharge to home once medically stable
[2017-05-09] MEDS ORDERED: PROPOFOL IV EMULSION 10 MG/ML 20 ML VIAL IV ONE (16:24)
[2017-05-09] MEDS ORDERED: LIDOCAINE HCL 2% 2 ML VIAL (20MG/ML) ONE (16:24)
--- NOTE | 2017-05-09 16:30 | GI REPORT ---
Procedure Date: 05/09/2017 4:06 PM Procedure: Upper GI endoscopy Indications: Melena Medicines: Monitored Anesthesia Care Complications: No immediate complications. Estimated Blood Loss: Estimated blood loss: none. Procedure: Pre-Anesthesia Assessment: - Prior to the procedure, a History and Physical was performed, and patient medications and allergies were reviewed. The patient's tolerance of previous anesthesia was also reviewed. The risks and benefits of the procedure and the sedation options and risks were discussed with the patient. All questions were answered, and informed consent was obtained. Prior Anticoagulants: The patient has taken Pradaxa (dabigatran), last dose was 2 days prior to procedure. ASA Grade Assessment: IV - A patient with severe systemic disease that is a constant threat to life. After reviewing the risks and benefits, the patient was deemed in satisfactory condition to undergo the procedure. After obtaining informed consent, the endoscope was passed under direct vision. Throughout the procedure, the patient's blood pressure, pulse, and oxygen saturations were monitored continuously. The On-site loaner was introduced through the mouth, and advanced to the second part of duodenum. The upper GI endoscopy was accomplished without difficulty. The patient tolerated the procedure well. Findings: The esophagus was normal. The stomach was normal. The examined duodenum was normal. Impression: - Normal esophagus. - Normal stomach. - Normal examined duodenum. - No specimens collected. Recommendation: - [facility]. - Clear liquid diet today, then NPO after midnight - Perform a colonoscopy tomorrow. Yahir Garnica, DO 05/09/2017 4:29:33 PM This report has been signed electronically. Note Initiated On: 05/09/2017 4:06 PM I attest to the content of the Intraoperative Record and orders documented therein, exceptions below
--- NOTE | 2017-05-09 16:46 | Anesthesiology Progress Note ---
Anesthesia Post Op Note Date & Time May 09, 2017 at 16:46 Vital Signs Pain Intensity: 0 Vital Signs Past 12 Hours Date Time Temp Pulse Resp B/P (MAP) Pulse Ox O2 Delivery O2 Flow Rate FiO2 05/09/17 16:40 63 16 122/78 (93) 97 Room Air 05/09/17 16:25 79 16 127/69 (88) 98 Room Air 05/09/17 15:45 36.7 65 20 133/77 (95) 98 Room Air 05/09/17 15:44 36.4 62 18 139/76 (97) 97 Room Air 05/09/17 13:06 36.5 73 18 126/79 (95) 98 05/09/17 12:00 Room Air 05/09/17 08:00 Room Air 05/09/17 07:26 36.7 77 18 110/71 (84) 96 Room Air Notes Mental Status: alert / awake / arousable, participated in evaluation Pt Amnestic to Procedure: Yes Nausea / Vomiting: adequately controlled Pain: adequately controlled Airway Patency, RR, SpO2: stable & adequate BP & HR: stable & adequate Hydration State: stable & adequate Anesthetic Complications: no major complications apparent
[2017-05-09] MEDS: PRAVASTATIN SOD 20 MG TAB PO SCH (20:49)
[2017-05-09] MEDS ORDERED: LAVAGE SOLUTION 4000ML PO SCH (22:00)
[2017-05-10] VITALS (7 sets, daily range): BP systolic 108–124; BP diastolic 50–74; PULSE 68–93; TEMP 36.7–37.3; O2SAT 97
[2017-05-10 06:15] LABS: HEMATOCRIT 28.5 % (37-47)
[2017-05-10] MEDS: ONDANSETRON INJ 2 MG/ML 2 ML VIAL IV PRN (08:30)
[2017-05-10] MEDS ORDERED: PANTOprazole SOD 40 MG TAB PO SCH (09:00)
[2017-05-10] MEDS ORDERED: PROPOFOL IV EMULSION 10 MG/ML 20 ML VIAL IV ONE (09:29)
[2017-05-10] MEDS ORDERED: LIDOCAINE HCL 2% 2 ML VIAL (20MG/ML) ONE (09:29)
--- NOTE | 2017-05-10 10:02 | GI REPORT ---
Procedure Date: 05/10/2017 9:36 AM Procedure: Colonoscopy Indications: Screening for colorectal malignant neoplasm, Incidental - Melena Medicines: Propofol per Anesthesia Complications: No immediate complications. Estimated blood loss: Minimal. Estimated Blood Loss: Estimated blood loss was minimal. Procedure: Pre-Anesthesia Assessment: - Prior to the procedure, a History and Physical was performed, and patient medications, allergies and sensitivities were reviewed. The patient's tolerance of previous anesthesia was reviewed. - The risks and benefits of the procedure and the sedation options and risks were discussed with the patient. All questions were answered and informed consent was obtained. - Patient identification and proposed procedure were verified prior to the procedure by the physician and the nurse. The procedure was verified in the pre-procedure area in the procedure room. - Mental Status Examination: alert and oriented. Airway Examination: normal oropharyngeal airway and neck mobility. Respiratory Examination: clear to auscultation. CV Examination: normal. Abdominal Examination: bowel sounds present, abdomen soft and non-tender, no masses or organomegaly noted. - ASA Grade Assessment: III - A patient with severe systemic disease. After I obtained informed consent, the scope was passed under direct vision. Throughout the procedure, the patient's blood pressure, pulse, and oxygen saturations were monitored continuously. The Scope was introduced through the anus and advanced to the terminal ileum. The colonoscopy was performed without difficulty. The patient tolerated the procedure well. The quality of the bowel preparation was good. Findings: The perianal and digital rectal examinations were normal. Pertinent negatives include normal sphincter tone and no palpable rectal lesions. The terminal ileum appeared normal. The colon (entire examined portion) appeared normal. There were a few pseudopolyps which were biopsied. The background mucosa was biopsied as well. Verification of patient identification for the specimen was done by the physician and nurse using the patient's name and date. Estimated blood loss was minimal. Multiple small and large-mouthed diverticula were found in the entire colon. The retroflexed view of the distal rectum and anal verge was normal and showed no anal or rectal abnormalities. Impression: - The examined portion of the ileum was normal. - The entire examined colon is normal. Biopsied. - Diverticulosis in the entire examined colon. - The distal rectum and anal verge are normal on retroflexion view. Recommendation: - Await pathology results. - To visualize the small bowel, perform video capsule endoscopy at appointment to be scheduled. José Miguel Ospina, 05/10/2017 10:01:25 AM This report has been signed electronically. Note Initiated On: 05/10/2017 9:36 AM I attest to the content of the Intraoperative Record and orders documented therein, exceptions below
--- NOTE | 2017-05-10 10:17 | Anesthesiology Progress Note ---
Anesthesia Post Op Note Date & Time May 10, 2017 at 10:17 Vital Signs Pain Intensity: 0 Vital Signs Past 12 Hours Date Time Temp Pulse Resp B/P (MAP) Pulse Ox O2 Delivery O2 Flow Rate FiO2 05/10/17 10:10 67 16 123/67 (85) 99 Room Air 05/10/17 09:55 86 16 110/67 (81) 100 Room Air 05/10/17 09:12 36.8 69 2 121/68 (85) 98 Room Air 05/10/17 07:50 37.3 93 16 113/69 (84) 97 Room Air 05/10/17 04:14 36.7 68 16 108/50 97 Room Air 68 05/10/17 04:02 36.7 68 16 108/50 (69) 97 Room Air 05/10/17 04:00 Room Air 05/10/17 00:00 Room Air 05/09/17 23:42 36.4 59 16 128/78 (95) 98 Room Air Notes Mental Status: alert / awake / arousable, participated in evaluation Pt Amnestic to Procedure: Yes Nausea / Vomiting: adequately controlled Pain: adequately controlled Airway Patency, RR, SpO2: stable & adequate BP & HR: stable & adequate Hydration State: stable & adequate Anesthetic Complications: no major complications apparent
--- NOTE | 2017-05-10 11:03 | Discharge Summary ---
Discharge Summary Date of Service May 10, 2017. 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 Mild pulmonary hyperaeration. No evidence for cardiac enlargement. No focal infiltrate. IMPRESSION: Emphysematous change. No acute process. Electronically signed by: Uli Sanches M.D. 05/08/2017 1:00 PM Dictated Date/Time: 05/08/2017 12:59 PM The status of this report is Signed. Draft = Not yet reviewed or approved by Radiologist. Signed = Reviewed and approved by Radiologist. EGD: Findings: The esophagus was normal. The stomach was normal. The examined duodenum was normal. Impression: - Normal esophagus. - Normal stomach. - Normal examined duodenum. - No specimens collected. Colonoscopy: Findings: The perianal and digital rectal examinations were normal. Pertinent negatives include normal sphincter tone and no palpable rectal lesions. The terminal ileum appeared normal. The colon (entire examined portion) appeared normal. There were a few pseudopolyps which were biopsied. The background mucosa was biopsied as well. Verification of patient identification for the specimen was done by the physician and nurse using the patient's name and date. Estimated blood loss was minimal. Multiple small and large-mouthed diverticula were found in the entire colon. The retroflexed view of the distal rectum and anal verge was normal and showed no anal or rectal abnormalities. Impression: - The examined portion of the ileum was normal. - The entire examined colon is normal. Biopsied. - Diverticulosis in the entire examined colon. - The distal rectum and anal verge are normal on retroflexion view. Consultations: GI Medication Reconciliation New Medications: Pantoprazole (Pantoprazole Sodium) 40 Mg Tab 40 MG PO QAM for 30 Days, #30 TAB Continued Medications: Alprazolam (Xanax) 0.5 Mg Tab 0.5 MG PO TID Dabigatran Etexilate Mesylate (Pradaxa) 150 Mg Cap 150 MG PO BID Escitalopram (Lexapro) 10 Mg Tab 10 MG PO DAILY Pravastatin (Pravachol ) 20 Mg Tab 20 MG PO QPM Prednisone (Prednisone) 5 Mg Tab 5 MG PO DAILY, TAB Discontinued Medications: Omeprazole (Prilosec) 20 Mg Capcr 20 MG PO DAILY Referrals At Discharge Follow up Referrals: Insulation Technician Referral - Within 1-2 Weeks with Yahir Garnica D.O. Discharge Exam Review of Systems: Constitutional: No fever, No chills, No sweats, No weakness, No fatigue Respiratory: No cough, No shortness of breath, No hemoptysis Cardiovascular: No chest pain, No edema, No palpitations Abdomen: No pain, No nausea, No vomiting, No diarrhea, No constipation, No GI bleeding Musculoskeletal: No joint pain, No muscle pain, No swelling, No calf pain Genitourinary - Female: No dysuria, No hematuria Neurologic: No weakness, No numbness/tingling Psychiatric: No depression symptoms, No anxiety Hematologic / Lymphatic: No abnormal bleeding/bruising Integumentary: No rash, No itch, No new/changing skin lesions Physical Exam: General Appearance: no apparent distress Eyes: normal inspection, PERRL ENT: hearing grossly normal Neck: supple Respiratory/Chest: lungs clear, no respiratory distress, no accessory muscle use Cardiovascular: regular rate, rhythm Abdomen / GI: normal bowel sounds, non tender, soft Extremities: no calf tenderness, no pedal edema Neurologic/Psychiatric: alert, normal mood/affect, oriented x 3 Skin: normal color, warm/dry, no rash Hospital Course Admission H&P: 76 y/o F Hx PUD, unspecified rheumatic condition, CVA due to presumed AF - has an implanted monitor presently and is taking Xarelto. Pt has had black tarry stools for over one week and recently became progressively light -headed. She denies nausea, vomiting, diarrhea, abdominal pain or SOB. She presented to the hospital for evaluation and has a Hb of 6.8 on initial labs. Physical Exam Vital Signs Date Time Temp Pulse Resp B/P (MAP) Pulse Ox O2 Delivery O2 Flow Rate FiO2 05/08/17 14:16 66 19 97 05/08/17 14:00 99/63 05/08/17 13:46 68 21 99 05/08/17 13:16 66 17 05/08/17 13:07 66 05/08/17 11:55 36.7 82 20 95/59 98 General Appearance: WD/WN, no apparent distress Head: normocephalic Eyes: normal inspection ENT: normal ENT inspection, pharynx normal Neck: supple, no JVD Respiratory/Chest: chest non-tender, lungs clear, normal breath sounds Cardiovascular: regular rate, rhythm, no edema, no gallop Abdomen/GI: normal bowel sounds, non tender, soft Back: normal inspection, no CVA tenderness, no muscle spasm, normal range of motion Extremities/Musculoskelatal: normal inspection, no calf tenderness, normal capillary refill, no pedal edema Neurologic/Psych: safety director II-XII nml as tested, no motor/sensory deficits, alert Skin: normal color, warm/dry, no rash GI bleed secondary to Pradaxa/acute blood loss anemia- transfused 2 u PRBCs on : - Admitted to tele for cardiac monitoring- no acute events - IVF + KCL @ 80 ml/hr - Pradaxa held - IV Protonix- transitioned to PO 40 mg Protonix daily - Consult GI, appreciate recommendations -- EGD on 05/09 -- Colonoscopy on 05/10 -- Recommend outpatient f/u for video capsule study- discussed w/ patient, would like to continue f/u w/ Dr. 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 a.fib w/ implanted monitor: - Pradaxa 150 mg BID held -- Discussed risk/benefits of resuming Pradaxa at discharge; will resume tonight (05/10)- discussed sign/symptoms to watch for - Continue Pravastatin 20 mg HS Rheumatic condition: Continue Prednisone 5 mg daily Anxiety: Xanax 0.5 mg TID and Lexapro TID GERD: Prilosec 20 mg daily held; Protonix- continue Protonix 40 mg daily at discharge and stop Prilosec GI Prophylaxis: Protonix DVT Prophylaxis: Chemical therapy contraindicated secondary to GI bleed and acute blood loss anemia Code Status: LEVEL I, FULL Dispo: Discharge to home - PCP f/u scheduled for 05/16 - Referral placed for f/u w/ Dr. Garnica for video capsule study Total Time Spent: Greater than 30 minutes This includes examination of the patient, discharge planning, medication reconciliation, and communication with other providers. Discharge Instructions Please refer to the electronic Patient Visit Report (Discharge Instructions) for additional information. Follow-Up Please follow-up with your PCP within 5-7 days Please follow-up with GI as instructed by them Please follow-up/keep all of your subspecialty appointments Additional Copies To Sherman Velarde PA-C
[2017-05-10] MEDS: ESCITALOPRAM OXALATE 10 MG TAB PO SCH (11:07)
[2017-05-10] MEDS ORDERED: PRT40 PO (11:09)
--- NOTE | 2017-05-10 11:28 | Discharge Instructions ---
Discharge Instructions Date of Service May 10, 2017. Admission Reason for Admission: Anemia, Gi Bleed Discharge Discharge Diagnosis / Problem: Acute blood loss anemia secondary to GI bleed Discharge Goals Goal(s): Improve function, Learn about illness, Diagnostic testing, Therapeutic intervention, Prevent Disease Progression Activity Recommendations Activity Limitations: resume your previous activity . Instructions / Follow-Up Instructions / Follow-Up New medications: 1. Take Protonix 40 mg by mouth once daily Resume all other medications as prescribed. We discussed the risk/benefits of resuming Pradaxa- resume Pradaxa tonight (05/10 ). Signs/symptoms of anemia (low blood count) to watch for: lightheadedness/ dizziness, fatigue, weakness, palpitations, shortness of breath, blood in stools or black/tarry stools. If you experience any of these symptoms, please seek medical attention DENNIS. Please keep scheduled follow-up with PCP on May 16 Please follow-up with GI as instructed by Dr. Garnica for video capsule study. If you do not hear of an appointment in the next 1-2 days, please call the office at # [phone] Please follow-up/keep all of your subspecialty appointments Current Hospital Diet Patient's current hospital diet: AHA Diet (Heart Healthy) Discharge Diet Recommended Diet: AHA Diet (Heart Healthy) Procedures Procedures Performed: 1. Colonoscopy with biopsy 2. EGD 3. Chest x-ray Pending Studies Studies pending at discharge: no Laboratory Results Last 24 Hours Test 05/10/17 05:47 Hemoglobin 9.4 g/dL Hematocrit 28.5 % Hemoglobin A1c Test 05/07/17 13:10 Range/Units Estimated Average Glucose 105 mg/dl Hemoglobin A1c 5.3 4.5-5.6 % Lipid Panel Test 05/07/17 13:10 Range/Units Triglycerides Level 57 0-150 mg/dl Cholesterol Level 113 0-200 mg/dl HDL Cholesterol 50 mg/dl Cholesterol/HDL Ratio 2.3 LDL Cholesterol, Calculated 52 mg/dl Medical Emergencies . Who to Call and When: Medical Emergencies: If at any time you feel your situation is an emergency, please call 911 immediately. . Non-Emergent Contact Non-Emergency issues call your: Primary Care Provider . . "Provider Documentation" section prepared by Maira Gonsales. . VTE Core Measure Inpt VTE Proph given/why not?: SCD's, Contraindicated
[2017-05-10] MEDS: ALPRAZOLAM 0.5 MG TAB PO SCH (12:57)
== END 2017-05-10 15:00 | disposition home or self-care (01) | DRG 813 ==
LOC: C.EDB 11:47 → C.MED 14:43 → ENRESERV 15:17
PROVIDERS: ADMIT Internal Medicine; ATTEND Internal Medicine
PROC: 0DJ08ZZ Inspection of Upper Intestinal Tract, Via Natural or Artificial Opening Endoscopic (ICD-10-PCS; principal; 2017-05-09 15:42)
PROC: 0DBE8ZX Excision of Large Intestine, Via Natural or Artificial Opening Endoscopic, Diagnostic (ICD-10-PCS; 2017-05-10)
DX: D68.32 Hemorrhagic disorder due to extrinsic circulating anticoagulants (principal); D62 Acute posthemorrhagic anemia; K51.90 Ulcerative colitis, unspecified, without complications; T45.515A Adverse effect of anticoagulants, initial encounter; K57.30 Diverticulosis of large intestine without perforation or abscess without bleeding; I95.9 Hypotension, unspecified; I48.91 Unspecified atrial fibrillation; K27.9 Peptic ulcer, site unspecified, unspecified as acute or chronic, without hemorrhage or perforation; K21.9 Gastro-esophageal reflux disease without esophagitis; F41.9 Anxiety disorder, unspecified; Z87.891 Personal history of nicotine dependence; Z91.19 Patient's noncompliance with other medical treatment and regimen; Z86.73 Personal history of transient ischemic attack (TIA), and cerebral infarction without residual deficits; Z79.01 Long term (current) use of anticoagulants; Z79.52 Long term (current) use of systemic steroids; Z79.899 Other long term (current) drug therapy; R07.9 Chest pain, unspecified

== ENCOUNTER → 2017-05-15 | Outpatient (CLI) | payer OTHER, BC ==
[~2017-05-15] MED LIST changes: -ASACOL 400MG PO; -CALC-354 PO; +DABI150C PO; +ESCI10TA17 PO; -ESCI5TAB PO; -OMEP20CA59 PO; +PRAV20TA PO; +PRED-301 PO; +PRT40 PO
[2017-05-15 18:44] LABS: HEMATOCRIT 32.2 % (37-47)
== END | disposition home or self-care (01) ==
LOC: C.LABMFLN 13:03
PROVIDERS: ATTEND Physician Assistant
DX: K92.2 Gastrointestinal hemorrhage, unspecified (principal)

== ENCOUNTER → 2017-05-16 | Outpatient (CLI) | payer OTHER, BC ==
--- NOTE | 2017-05-16 15:04 | DIAGNOSTIC IMAGING REPORT ---
CHEST 2 VIEWS ROUTINE CLINICAL HISTORY: 76 years-old Female presenting with SLEEPS IN SITTING POSITION DUE TO ORTHOPNEA. TECHNIQUE: PA and lateral views of the chest were obtained. COMPARISON: 05/08/2017. FINDINGS: Radiopaque external object projects over the mid left lung. Cardiomediastinal silhouette normal. Lungs mildly hyperinflated. Lungs and pleural spaces clear. Osseous structures normal. Cholecystectomy clips noted. IMPRESSION: 1. No acute cardiopulmonary disease. 2. Hyperinflation likely due to emphysema. Electronically signed by: Vincent Orellana M.D. 05/16/2017 3:02 PM Dictated Date/Time: 05/16/2017 3:00 PM
== END | disposition home or self-care (01) ==
LOC: C.RAD 14:36
PROVIDERS: ATTEND Physician Assistant
DX: R06.01 Orthopnea (principal); R91.8 Other nonspecific abnormal finding of lung field